=== PATIENT | female | born 1995 | race Caucasian/White ===

== ENCOUNTER 2019-04-04 14:10 | Emergency (ER) | payer OTHER, SELFPAY ==
[2019-04-04 14:11] VITALS: BP 130/79; PULSE 79; PULSE 88; RESP 16; TEMP 36.3; O2SAT 96; BMI 30.9
--- NOTE | 2019-04-04 14:28 | RAD_ITS ---
STUDY: X-RAY - UNILATERAL RIBS ( RIGHT ) WITH CHEST REASON FOR EXAM: Female, 24 years old. Rib pain, coughing TECHNIQUE - RIBS: 4 view(s) of the ribs. TECHNIQUE - CHEST: Single PA view of the chest. COMPARISON: None. FINDINGS - RIBS: Normal visualized ribs without a demonstrated fracture. FINDINGS - CHEST: The lungs are clear and expanded. There is no demonstrated pleural abnormality. Normal size heart. Normal mediastinum and aliza. Normal visualized pulmonary arteries. Normal visualized aortic arch and descending thoracic aorta. Normal visualized thoracic spine. Normal visualized ribs, clavicles, and shoulders. There is no demonstrated abnormality of the visualized soft tissue structures of the upper abdomen. RAD/Ribs Uni Min 3V w/PA Chest IMPRESSION: RIBS: Normal x-ray examination of the ribs. CHEST: Normal x-ray examination of the chest. Electronically Signed: Reza Benites MD at 15:04 EDT Tel , Service support ,
[2019-04-04] MEDS: HYDROcodone Bitartrate/Apap 5/325 Tablet PO (14:33)
--- NOTE | 2019-04-04 15:16 | ED.DCSUM_ITS ---
- ER Visit Summary Date of Service: 04/04/19 Chief Complaint: Cough, right rib pain History of Present Illness: The patient is a 24 F who has a cough and right rib pain. Started 1/2-hour ago. She has been coughing for over a week and was diagnosed with pneumonia at an urgent care. She has been on antibiotics but after a coughing episode today she had pain in the right ribs. She is been taking Tylenol and ibuprofen for her general symptoms without any relief. She is coughing up a yellow sputum. No fevers. Physical Examination: Vital signs are reviewed. HEENT exam unremarkable. Heart is regular rate and rhythm. Lungs are clear to auscultation bilaterally. She has right lower rib chest tenderness in the mid axillary line. Abdomen is soft and nontender. Extremity have no edema. Her neurologic exam is normal. Test Results: Right rib series is negative for fracture or infiltrate Emergency Department Course and Treatment: Patient was given [place] here. I will give her 8 [place] for home. She was encouraged to take deep breaths. Follow-up with her PCP Treatment Plan: [] Disposition: Discharge Impression: Right rib pain This note was generated with [employer] dictation software. It may contain incorrect words, spelling, and punctuation that were not noted in review of the chart prior to signing ED Disposition - Plan for ED Patient: Referrals: [facility],Out of [Primary Care Provider] -
--- NOTE | 2019-04-04 15:18 | ED.DEP ---
ED Disposition - Plan for ED Patient: Disposition: Home or Assisted Living Instructions: Pleurisy Prescriptions: Hydrocodone Bitart/Apap 5-325 [[place] 5MG-325MG] 1 tab PO Q6H PRN PRN 3 Days #8 tab PRN Reason: Pain Prescription Printed Referrals: [facility],Out of [Primary Care Provider] -
== END 2019-04-04 15:33 | disposition home or self-care (01) ==
PROVIDERS: Emergency Provider Emergency Medicine
DX: R07.81 Pleurodynia (principal); R05 Cough; Z87.01 Personal history of pneumonia (recurrent)
CPT/HCPCS: 71101; 99283

== ENCOUNTER → 2023-04-30 | Outpatient (CLI) | payer OTHER, SELFPAY ==
--- NOTE | 2023-04-30 06:16 | RAD_ITS ---
INDICATION: PAIN IN LEFT HIP NKI C/O LT HIP PAIN WITH PAIN RADIATING DOWN LT LEG FOR SEVERAL WEEKS EXAMINATION/TECHNIQUE: X-RAY - XR Hip Unilateral with Pelvis when performed; 2-3 Views COMPARISON: None. FINDINGS: No fracture demonstrated. Femoral heads are normal contour. No dislocation at the hips. Sacroiliac joints are symmetric. RAD/HIP, UNI W/ Pelvis 2-3 Views IMPRESSION: Unremarkable study. Electronically Signed: Kira Messer MD at 7:51 EDT ,
== END | disposition home or self-care (01) ==
LOC: RAD 06:15
PROVIDERS: Referring Provider Internal Medicine; Visit Provider Internal Medicine
DX: M25.552 Pain in left hip (principal); M25.572 Pain in left ankle and joints of left foot
CPT/HCPCS: 73502

== ENCOUNTER → 2025-01-03 | Outpatient (CLI) | payer OTHER, SELFPAY ==
[2025-01-05 16:00] LABS: Follicle Stimulating Hormone 3.8 mIU/mL; Luteinizing Hormone 12.5 mIU/mL
[2025-01-10 15:08] LABS: Insulin Level 19.2 uIU/mL (2.6-24.9); Testosterone, Total 29 ng/dL (13-71)
== END | disposition home or self-care (01) ==
LOC: LAB.FUTURE 13:43 → LAB 01-05 07:51
PROVIDERS: Visit Provider Obstetrics & Gynecology
DX: N92.1 Excessive and frequent menstruation with irregular cycle (principal)
CPT/HCPCS: 36415; 83001; 83002; 83525; 84402; 84403

== ENCOUNTER → 2025-06-28 | Outpatient (CLI) | payer OTHER, SELFPAY ==
[2025-06-28 11:20] LABS: Color, Urine Straw (Yellow); Glucose, Dipstick Normal (Normal); Ketone-Dipstick Negative (Negative); Leukocyte Esterase-Dipstick 25 /ul (Negative); Nitrite-Dipstick Negative (Negative); Occult Blood-Urine 250 /ul (Negative); Protein-Dipstick 30 mg/dl (Negative); Specific Gravity, Urine 1.020 (1.002-1.030); Urine Bilirubin Dipstick Negative (Negative)
== END | disposition home or self-care (01) ==
LOC: LABSPEC 08:14
PROVIDERS: Referring Provider Nurse Practitioner Family; Visit Provider Nurse Practitioner Family
DX: R30.0 Dysuria (principal)
CPT/HCPCS: 81002; 87077; 87086; 87088; 87186